=== PATIENT | male | born 1970 | race Hispanic/Latino ===

== ENCOUNTER 2018-11-14 03:36 | Inpatient (IN) | payer BC ==
[~2018-11-14] VITALS: Ht 180.3 cm; Wt 101.5 kg
[~2018-11-14 03:36] MED LIST: AMLO5TAB5 PO; SIMV40TA59 PO
[2018-11-14] MEDS ORDERED: IPRATROPIUM/ALBUTEROL SULFATE 3 ML SOLUTION IH ONE ×3 (04:03→11:04)
[2018-11-14] MEDS ORDERED: ZOSYN 3.375GM+NS 50ML 50 ML IV ONE (04:06)
[2018-11-14 04:19] LABS: ABG BASE EXCESS -11.4 mmol/L (-2.0-3.0); ABG HCO3 12.2 mmol/L (21.0-28.0); ABG OXYGEN SATURATION 94.2 % (95.0-99.0); ABG PCO2 23 mmHg (35-48)
[2018-11-14] MEDS ORDERED: VANCOMYCIN 1GM+NS 250ML 250 ML IV ONE (04:21)
[2018-11-14] MEDS ORDERED: SODIUM CHLORIDE 0.9% 500ML 500 ML IV ONE (04:21)
[2018-11-14 04:28] LABS: BASOPHILS % (AUTO) 1.2 % (0.0-5.0); EOSINOPHILS % (AUTO) 0.2 % (0.0-8.0); HEMATOCRIT 40.9 % (42-54); INR 0.97 (0.85-1.15); LYMPHOCYTES % (AUTO) 14.7 % (21.0-51.0); MEAN CORPUSCULAR HEMOGLOBIN 29.8 pg (27.0-33.0); MEAN CORPUSCULAR HGB CONC 33.2 g/dL (32.0-36.0); MEAN CORPUSCULAR VOLUME 89.8 fL (79-99); MONOCYTES % (AUTO) 4.1 % (3.0-13.0); NEUTROPHILS % (AUTO) 79.8 % (40.0-77.0); PARTIAL THROMBOPLASTIN TIME 34.4 SEC (26.3-35.5); PLATELET COUNT (AUTO) 223 K/uL (130-400); PROTHROMBIN TIME 10.2 SEC (9.6-11.6); RED BLOOD CELL COUNT(AUTO) 4.56 MIL/uL (4.50-6.20); RED CELL DISTRIBUTION WIDTH 14.6 % (11.0-15.5); WHITE BLOOD COUNT (AUTO) 10.2 K/uL (4.8-10.8)
[2018-11-14 04:45] LABS: ALANINE AMINOTRANSFERASE 42 U/L (12-78); ALBUMIN 1.9 g/dL (3.5-5.0); ASPARTATE AMINOTRANSFERASE 69 U/L (10-37); BILIRUBIN,TOTAL 0.2 mg/dL (0.2-1.0); CARBON DIOXIDE 15 mmol/L (21-32); CHLORIDE 104 mmol/L (101-111); CREATINE KINASE, TOTAL 342 U/L (21-232); GLOMERULAR FILTR. RATE CALC 5 mL/min (>60); GLUCOSE,RANDOM 98 mg/dL (70-105); MYOGLOBIN 435 ng/mL (10-92); POTASSIUM 3.6 mmol/L (3.5-5.1); SODIUM SERUM 139 mmol/L (136-145); TOTAL PROTEIN, SERUM 7.3 g/dL (6.0-8.3); TROPONIN I < 0.04 ng/mL (0.00-0.06); UREA NITROGEN, BLOOD 74 mg/dL (7-18)
[2018-11-14 04:48] LABS: B-TYPE NATRIURETIC PEPTIDE 640 pg/mL (0-100)
[2018-11-14] MEDS ORDERED: VANCOMYCIN PROTOCOL PER PHARMACY IV SCH (05:45)
[2018-11-14] MEDS ORDERED: SODIUM CHLORIDE 0.9% 1000ML 1,000 ML IV SCH (05:57)
[2018-11-14] MEDS ORDERED: GLUCAGON 1MG KIT 1 MG ML IM PRN (06:00)
[2018-11-14] MEDS ORDERED: DEXTROSE 50%-WATER 50 ML DISP.SYRIN IV PRN (06:00)
[2018-11-14] MEDS ORDERED: ACETAMINOPHEN 325 MG TAB PO PRN ×3 (06:00→10:30)
[2018-11-14] MEDS ORDERED: ONDANSETRON HCL 4 MG/2 ML VIAL IV PRN ×2 (06:00→10:30)
[2018-11-14 06:23] LABS: HEMOGLOBIN A1C 7.7 % (4.0-6.0)
[2018-11-14] MEDS: INSULIN HUMULIN R 100 UNIT/ML 3ML SQ SCH ×4 (07:30→21:00)
[2018-11-14 07:49] LABS: CRP QUANTITATIVE 97.6 mg/L (0.00-9.0)
[2018-11-14] MEDS ORDERED: SODIUM CHLORIDE 0.9% 1000ML 1,000 ML IV ONE (08:19)
[2018-11-14] MEDS ORDERED: ENOXAPARIN SODIUM 30 MG/0.3 ML SQ ONE (08:20)
[2018-11-14] MEDS ORDERED: FAMOTIDINE/PF 20 MG/2 ML VIAL IV ONE (08:20)
[2018-11-14] MEDS: IPRATROPIUM/ALBUTEROL SULFATE 3 ML SOLUTION IH SCH ×5 (08:33→21:39)
[2018-11-14] MEDS ORDERED: ENOXAPARIN SODIUM 30 MG/0.3 ML SQ SCH (09:00)
[2018-11-14] MEDS: FAMOTIDINE/PF 20 MG/2 ML VIAL IV SCH (09:43)
[2018-11-14] MEDS: FUROSEMIDE 10 MG/ML 4ML VIAL IV SCH ×2 (09:45→21:18)
[2018-11-14] MEDS ORDERED: FUROSEMIDE 10 MG/ML 4ML VIAL ONE (09:59)
[2018-11-14 10:08] LABS: TROPONIN I 0.06 ng/mL (0.00-0.06)
[2018-11-14] MEDS ORDERED: LACTULOSE 20 GM/30 ML UDCUP PO PRN (10:30)
[2018-11-14] MEDS ORDERED: RENAL DOSE IV SCH (10:30)
[2018-11-14] MEDS ORDERED: VANCOMYCIN PROTOCOL PER PHARMACY IV PRN (10:30)
[2018-11-14] MEDS ORDERED: GUAIFENESIN-DM 200/20 MG 10 ML PO PRN (10:30)
[2018-11-14] MEDS ORDERED: SODIUM CHLORIDE 3% FOR INHALATION 4 ML/AMP VIAL.NEB IH ONE ×3 (11:04→22:10)
[2018-11-14] MEDS ORDERED: ACETAMINOPHEN 325 MG TAB ONE (12:18)
[2018-11-14] MEDS ORDERED: ZOSYN 3.375GM+NS 50ML 50 ML IV SCH (13:00)
[2018-11-14 14:40] VITALS: BP 159/90
[2018-11-14] MEDS: VANCOMYCIN 1.5 GM in SODIUM CHLORIDE 0.9% 250 ML IV ONE ×2 (15:13→16:39)
[2018-11-14] MEDS ORDERED: PHARMACY COMMUNICATION MISC SCH (15:15)
[2018-11-14 16:00] VITALS: BP 184/97
[2018-11-14 16:36] LABS: TROPONIN I 0.1 ng/mL (0.00-0.06)
[2018-11-14 19:00] VITALS: BP 196/96
--- NOTE | 2018-11-14 20:45 | NUR ---
HOSPITALIST PAGED REGARDING PATIENT'S ELEVATED BLOOD PRESSURE BOB VENTURA RETURNED CALL, APPRAISED OF PATIENT'S BLOOD PRESSURE, HOME MEDS RESUMED AND GIVEN TO PATIENT.
[2018-11-14] MEDS ORDERED: OSELTAMIVIR PHOSPHATE 75 MG CAP PO SCH (21:00)
[2018-11-14] MEDS ORDERED: AMLODIPINE BESYLATE 5 MG TAB PO ONE (21:15)
[2018-11-14] MEDS: SIMVASTATIN 20 MG TABLET PO SCH (21:18)
[2018-11-14] MEDS: ZOSYN 3.375GM+NS 50ML 50 ML IV SCH (21:19)
[2018-11-14] MEDS: AMLODIPINE BESYLATE 5 MG TAB PO SCH (21:51)
--- NOTE | 2018-11-14 22:50 | NUR ---
BOB VENTURA HERE, ADVISED OF PATIENT'S ELEVATED BLOOD PRESSURE, ORDER RECEIVED AND PLACED IN COMPUTER. PATIENT MEDICATED FOR ELEVATED BLOOD PRESSURE PER ORDERS.
[2018-11-14 23:00] VITALS: BP 196/89
[2018-11-14] MEDS: HYDRALAZINE HCL 20 MG/ML VIAL IV PRN (23:13)
[2018-11-15] VITALS (8 sets, daily range): BP systolic 143–194; BP diastolic 74–94
[2018-11-15] MEDS: IPRATROPIUM/ALBUTEROL SULFATE 3 ML SOLUTION IH SCH ×6 (01:52→22:00)
[2018-11-15 04:10] LABS: HEMATOCRIT 36.3 % (42-54); MEAN CORPUSCULAR HEMOGLOBIN 30.2 pg (27.0-33.0); MEAN CORPUSCULAR HGB CONC 33.8 g/dL (32.0-36.0); MEAN CORPUSCULAR VOLUME 89.3 fL (79-99); NUCLEATED RED BLOOD CELLS 0.2 % (0.0-0.19); PLATELET COUNT (AUTO) 184 K/uL (130-400); RED BLOOD CELL COUNT(AUTO) 4.06 MIL/uL (4.50-6.20); RED CELL DISTRIBUTION WIDTH 14.7 % (11.0-15.5); WHITE BLOOD COUNT (AUTO) 7.2 K/uL (4.8-10.8)
[2018-11-15 04:18] LABS: PARTIAL THROMBOPLASTIN TIME 39.2 SEC (26.3-35.5); PROTHROMBIN TIME 10.5 SEC (9.6-11.6)
[2018-11-15 04:34] LABS: BAND NEUTROPHILS % (MANUAL) 16 % (0-2); BASOPHILS % (MANUAL) 1 % (0-2); LYMPHOCYTES % (MANUAL) 7 % (22-44); MAN.DIFF COMMENT-IMPRESSION MANUAL DIFFERENTIAL; MONOCYTES % (MANUAL) 1 % (2-9); REACTIVE LYMPHOCYTES 1 % (0-0); SEGMENTED NEUTROPHILS % 74 % (40-70)
[2018-11-15 04:35] LABS: PLATELET MORPHOLOGY COMMENT ADEQUATE
[2018-11-15 04:41] LABS: ALBUMIN 1.5 g/dL (3.5-5.0); BILIRUBIN,TOTAL 0.2 mg/dL (0.2-1.0); POTASSIUM 3.3 mmol/L (3.5-5.1); TOTAL PROTEIN, SERUM 6.1 g/dL (6.0-8.3)
[2018-11-15 04:56] LABS: CREATININE 13.4 mg/dL (0.5-1.5)
[2018-11-15] MEDS: INSULIN HUMULIN R 100 UNIT/ML 3ML SQ SCH ×4 (05:56→21:00)
--- NOTE | 2018-11-15 07:41 | NUR ---
PAGED DR. MCMILLAN PATIENT ALREADY AGREED TO HAVING HEMODIALYSIS. AWAITING MD'S CALLBACK.
--- NOTE | 2018-11-15 07:59 | NUR ---
PT CARE/PPD Spoke to IC nurse by phone regarding order to have PPD placed. Will be addressed this AM.
[2018-11-15] MEDS: FAMOTIDINE/PF 20 MG/2 ML VIAL IV SCH (08:34)
[2018-11-15] MEDS: ZOSYN 3.375GM+NS 50ML 50 ML IV SCH ×2 (08:48→21:53)
[2018-11-15] MEDS ORDERED: ENOXAPARIN SODIUM 30 MG/0.3 ML SQ SCH (09:00)
[2018-11-15] MEDS ORDERED: OSELTAMIVIR PO SCH ×2 (09:00)
[2018-11-15] MEDS ORDERED: AMLODIPINE BESYLATE 5 MG TAB PO SCH (09:00)
[2018-11-15] MEDS ORDERED: FAMOTIDINE/PF 20 MG/2 ML VIAL IV SCH (09:00)
[2018-11-15] MEDS: AMLODIPINE BESYLATE 5 MG TAB PO SCH (09:00)
[2018-11-15] MEDS: METOPROLOL TARTRATE 50 MG TAB PO SCH ×2 (09:00→21:54)
--- NOTE | 2018-11-15 09:20 | NUR ---
DR. MCMILLAN IS MAKING HIS ROUNDS. PATIENT IS PENDING PERMACATH PLACEMENT THIS AFTERNOON. HEMODIALYSIS TO BE STARTED TODAY.
[2018-11-15] MEDS: FUROSEMIDE 10 MG/ML 4ML VIAL IV SCH ×2 (11:25→21:45)
--- NOTE | 2018-11-15 16:15 | NUR ---
DC PLAN VISITED WITH PATIENT. PATIENT LIVES WITH SPOUSE. INDEPENDENT ABLE TO PERFORM ADL'S. PATIENT HAS NO SERVICES OR DME'S. FEELS SAFE TO RETURN HOME. Addendum: 11/15/18 at 1619 by CAMILA BURKS RN CM Amended: Links added.
--- NOTE | 2018-11-15 16:18 | NUR ---
DC PLAN VISITED WITH PATIENT. PATIENT LIVES ALONE. INDEPENDENT ABLE TO PERFORM ADL'S. PATIENT HAS NO SERVICES OR DME'S. FEELS SAFE TO RETURN HOME. PATIENT LIKELY TO BE A NEW START DIALYSIS. WILL NEED TO BE IN [place]. Addendum: 11/15/18 at 1619 by CAMILA BURKS RN CM Amended: Links added.
[2018-11-15] MEDS ORDERED: MIDAZOLAM HCL 1 MG/ML 2ML VIAL ONE (16:30)
[2018-11-15] MEDS ORDERED: LIDOCAINE HCL 1% MDV 50ML VIAL ONE (16:30)
[2018-11-15] MEDS ORDERED: FENTANYL CITRATE PF 50 MCG/1 ML 2ML VIAL ONE (16:30)
[2018-11-15] MEDS ORDERED: SODIUM BICARB 50MEQ 50ML VIAL ONE (16:31)
[2018-11-15] MEDS ORDERED: HEPARIN SODIUM 5000UNIT/ML 1ML VIAL ONE (17:11)
--- NOTE | 2018-11-15 17:15 | NUR ---
Jose Alberto catheter placement Time out performed at 1700. Dr Lauren in the room and procedure started at 1705. Patient has been prepared and draped in the usual fashion. 15 cm Schon catheter placed to WIJ. Catheter covered with tegaderm. Patient tolerated procedure well. No oozing, bruising, or hematoma noted. Report given to Brittaney MERCER.
[2018-11-15] MEDS: SIMVASTATIN 20 MG TABLET PO SCH (21:54)
--- NOTE | 2018-11-15 22:00 | NUR ---
AFIB RVR 2144- NOTIFIED BY KEEL PRESS OPERATOR THAT PT CONVERTED TO AFIB RVR 140'S SUSTAINED. PT IS ASYMPTOMATIC WITH SUSTAINED SYSTOLIC BP IN THE 140'S. DIALYSIS NURSE NOTIFIED, WHO IN TURN NOTIFIED Sabrina MCMILLAN FAMILY SERVICE CASEWORKER. INSTRUCTED BY TO CONTINUE WITH HD AND CONSULT LANGUAGE ASSISTANT. 2199- PT CONTINUES ASYMPTOMATIC WITH BP-143/89; AFIB-143. STAT EKG OBTAINED INDICATING AFIB RVR @ 144BPM. FABI MATHUR NOTIFIED. INSTRUCTED TO CONSULT LANGUAGE ASSISTANT. 2214- Cesar MCMILLAN MD NOTIFIED OF NEW CONSULT AND PT CONDITION. CARDIZEM BOLUS AND DRIP INITIATED PER PROTOCOL. PT DENIES PAIN OR DISTRESS. PENDING HD COMPLETION.
[2018-11-15] MEDS ORDERED: DILTIAZEM 125MG+100 ML NS 125 ML IV SCH (22:30)
[2018-11-15] MEDS ORDERED: SODIUM CHLORIDE 0.9% 100 ML IV ONE (22:44)
[2018-11-15] MEDS ORDERED: DILTIAZEM HCL 5 MG/ML 5 ML VIAL IVP ONE (22:45)
[2018-11-15] MEDS ORDERED: DILTIAZEM HCL 5 MG/ML 10 ML VIAL IV ONE (22:49)
[2018-11-16] VITALS (9 sets, daily range): BP systolic 142–168; BP diastolic 72–83
[2018-11-16] MEDS: HYDRALAZINE HCL 20 MG/ML VIAL IV PRN (00:43)
[2018-11-16] MEDS: DILTIAZEM HCL 5 MG/ML 10 ML VIAL IV SCH (00:54)
[2018-11-16] MEDS: IPRATROPIUM/ALBUTEROL SULFATE 3 ML SOLUTION IH SCH (01:47)
[2018-11-16 03:50] LABS: HEMATOCRIT 35.9 % (42-54); MEAN CORPUSCULAR HEMOGLOBIN 30.2 pg (27.0-33.0); MEAN CORPUSCULAR HGB CONC 34.2 g/dL (32.0-36.0); MEAN CORPUSCULAR VOLUME 88.4 fL (79-99); NUCLEATED RED BLOOD CELLS 0.1 % (0.0-0.19); PLATELET COUNT (AUTO) 184 K/uL (130-400); RED BLOOD CELL COUNT(AUTO) 4.06 MIL/uL (4.50-6.20); RED CELL DISTRIBUTION WIDTH 14.5 % (11.0-15.5); WHITE BLOOD COUNT (AUTO) 7.8 K/uL (4.8-10.8)
[2018-11-16 04:12] LABS: PHOSPHORUS 5.9 mg/dL (2.5-4.9); POTASSIUM 3.2 mmol/L (3.5-5.1)
[2018-11-16 04:30] LABS: CREATININE 11.8 mg/dL (0.5-1.5)
[2018-11-16] MEDS ORDERED: VANCOMYCIN 500MG+NS 100ML 100 ML IV SCH (06:00)
[2018-11-16] MEDS: INSULIN HUMULIN R 100 UNIT/ML 3ML SQ SCH ×4 (07:30→20:48)
[2018-11-16] MEDS ORDERED: IPRATROPIUM/ALBUTEROL SULFATE 3 ML SOLUTION IH PRN (09:00)
[2018-11-16] MEDS: METOPROLOL TARTRATE 50 MG TAB PO SCH ×2 (09:00→20:47)
[2018-11-16] MEDS: AMLODIPINE BESYLATE 5 MG TAB PO SCH (09:00)
[2018-11-16] MEDS: FAMOTIDINE/PF 20 MG/2 ML VIAL IV SCH (09:09)
[2018-11-16] MEDS: FUROSEMIDE 10 MG/ML 4ML VIAL IV SCH ×2 (09:09→20:49)
[2018-11-16] MEDS: ZOSYN 3.375GM+NS 50ML 50 ML IV SCH ×2 (09:09→20:47)
[2018-11-16] MEDS: ACETYLCYSTEINE 10% 100MG/ML 4ML VIAL IH SCH ×3 (11:37→23:49)
[2018-11-16] MEDS: IPRATROPIUM 0.5 MG/2.5 ML INH IH SCH ×3 (11:37→23:49)
[2018-11-16] MEDS ORDERED: HEPARIN SODIUM 5000UNIT/ML 1ML VIAL IJ PRN ×2 (18:15)
[2018-11-16] MEDS ORDERED: ACETAMINOPHEN 325 MG TAB PO PRN (18:15)
[2018-11-16] MEDS ORDERED: SODIUM CHLORIDE 0.9% 1000ML 1,000 ML IV PRN (18:15)
[2018-11-16] MEDS ORDERED: 0.9% SODIUM CHLORIDE 1000 ML IV BAG IV PRN (18:15)
[2018-11-16] MEDS ORDERED: NITROGLYCERIN 0.4 MG SL TAB SL PRN (18:15)
[2018-11-16] MEDS ORDERED: VANCOMYCIN 1GM+NS 250ML 250 ML IV SCH (18:30)
--- NOTE | 2018-11-16 19:02 | NUR ---
ASSESSMENT AA&OX3. NO DISTRESS NOTED. COMPLETED HEMODIALYSIS TREATMENT WITHOUT ANY ADVERSE EFFECTS. FULL ASSESSMENT DOCUMENTED. "GIRLFRIEND" AT BEDSIDE. INSTRUCTED ON PLAN OF CARE. INSTRUCTED ON PENDING SPUTUM SAMPLE FOR AFB. CONTAINER AT BEDSIDE. VERBALIZED UNDERSTANDING.
[2018-11-16] MEDS: SIMVASTATIN 20 MG TABLET PO SCH (20:48)
--- NOTE | 2018-11-16 21:00 | NUR ---
SPUTUM SAMPLE OBTAINED AND SENT TO LAB FOR AFB.
[2018-11-17 00:25] VITALS: BP 138/71
[2018-11-17 03:46] VITALS: BP 144/75
[2018-11-17 05:12] LABS: BASOPHILS % (AUTO) 0.4 % (0.0-5.0); EOSINOPHILS % (AUTO) 1.9 % (0.0-8.0); HEMATOCRIT 35.4 % (42-54); LYMPHOCYTES % (AUTO) 35.1 % (21.0-51.0); MEAN CORPUSCULAR HEMOGLOBIN 29.6 pg (27.0-33.0); MEAN CORPUSCULAR HGB CONC 33.5 g/dL (32.0-36.0); MEAN CORPUSCULAR VOLUME 88.2 fL (79-99); MONOCYTES % (AUTO) 8.4 % (3.0-13.0); NEUTROPHILS % (AUTO) 54.2 % (40.0-77.0); NUCLEATED RED BLOOD CELLS 0.1 % (0.0-0.19); PLATELET COUNT (AUTO) 200 K/uL (130-400); RED BLOOD CELL COUNT(AUTO) 4.01 MIL/uL (4.50-6.20); RED CELL DISTRIBUTION WIDTH 14.4 % (11.0-15.5); WHITE BLOOD COUNT (AUTO) 5.9 K/uL (4.8-10.8)
[2018-11-17 05:32] LABS: CREATININE 9.3 mg/dL (0.5-1.5); POTASSIUM 2.9 mmol/L (3.5-5.1)
[2018-11-17] MEDS: INSULIN HUMULIN R 100 UNIT/ML 3ML SQ SCH ×4 (05:53→20:46)
[2018-11-17] MEDS ORDERED: POTASSIUM CHLORIDE 20 MEQ ERTAB PO SCH ×3 (06:00→16:00)
[2018-11-17] MEDS ORDERED: POTASSIUM CHLORIDE 20 MEQ ERTAB PO ONE (06:11)
[2018-11-17] MEDS: IPRATROPIUM 0.5 MG/2.5 ML INH IH SCH ×4 (06:14→23:25)
[2018-11-17] MEDS: ACETYLCYSTEINE 10% 100MG/ML 4ML VIAL IH SCH ×4 (06:14→23:25)
[2018-11-17 07:15] VITALS: BP 137/72
--- NOTE | 2018-11-17 07:30 | NUR ---
AM ASSESSMENT PT LAYING IN BED, HOB ELEVATED 30 DEGREES, WATCHING TV. AIRBORNE ISOLATION. A/O X 3. SOB ON EXERTION. NO DISTRESS NOTED. O2 NC @ 2L. DENIES CHEST PAIN OR DISCOMFORT. DENIES PALPITATIONS. TELE: SR 70-80s. DENIES N/V AND/OR DIARRHEA. LT ARM PRECAUTIONS, POSSIBLE HD ACCESS IN FUTURE. PT TO RECEIVE 3rd HD TX TOMORROW. UP AD JORDAN. INSTRUCTED TO CALL FOR ASSISTANCE. CALL HARRIS W/IN REACH.
[2018-11-17 08:43] LABS: EOSINOPHILS % (AUTO) 2.3 % (0.0-8.0); HEMATOCRIT 35.3 % (42-54); LYMPHOCYTES % (AUTO) 32.7 % (21.0-51.0); MEAN CORPUSCULAR HEMOGLOBIN 29.4 pg (27.0-33.0); MEAN CORPUSCULAR VOLUME 89.1 fL (79-99); MONOCYTES % (AUTO) 9.9 % (3.0-13.0); NEUTROPHILS % (AUTO) 54.1 % (40.0-77.0); NUCLEATED RED BLOOD CELLS 0.1 % (0.0-0.19); PLATELET COUNT (AUTO) 206 K/uL (130-400); RED BLOOD CELL COUNT(AUTO) 3.97 MIL/uL (4.50-6.20); RED CELL DISTRIBUTION WIDTH 14.4 % (11.0-15.5); WHITE BLOOD COUNT (AUTO) 5.9 K/uL (4.8-10.8)
[2018-11-17] MEDS: FAMOTIDINE/PF 20 MG/2 ML VIAL IV SCH (10:01)
[2018-11-17] MEDS: AMLODIPINE BESYLATE 5 MG TAB PO SCH (10:01)
[2018-11-17] MEDS: ZOSYN 3.375GM+NS 50ML 50 ML IV SCH ×2 (10:01→22:05)
[2018-11-17] MEDS: METOPROLOL TARTRATE 50 MG TAB PO SCH ×2 (10:01→22:11)
[2018-11-17] MEDS: OSELTAMIVIR PHOSPHATE PO SCH ×2 (10:05)
[2018-11-17] MEDS: COMPOUNDING VEHICLE NO 8 PO SCH ×2 (10:05)
[2018-11-17] MEDS: FUROSEMIDE 10 MG/ML 4ML VIAL IV SCH ×2 (10:07→17:42)
[2018-11-17 10:52] LABS: POTASSIUM 3.2 mmol/L (3.5-5.1)
[2018-11-17 10:56] LABS: CREATININE 9.8 mg/dL (0.5-1.5)
[2018-11-17] MEDS ORDERED: METO50TA18 PO (11:24)
[2018-11-17 12:00] VITALS: BP 137/72
--- NOTE | 2018-11-17 14:08 | NUR ---
TRANSFER REPORT GIVEN TO PRINCESS MERCER. PT TO BE TRANSFERRED TO [facility] 301.
--- NOTE | 2018-11-17 14:35 | NUR ---
TRANSFER PT TAKEN TO [facility] VIA WC BY Raquel LE PCP, ACCOMPANIED BY FAMILY.
[2018-11-17 16:00] VITALS: BP 140/83
[2018-11-17 19:00] VITALS: BP 131/82
[2018-11-17] MEDS ORDERED: SODIUM CHLORIDE 0.9% 250 ML IV ONE (22:02)
[2018-11-17] MEDS: SIMVASTATIN 20 MG TABLET PO SCH (22:11)
[2018-11-17] MEDS: POTASSIUM CHLORIDE 10% ELIXIR 20 MEQ/15 ML UDCUP PO SCH (22:12)
[2018-11-18] VITALS (11 sets, daily range): BP systolic 121–175; BP diastolic 70–93
[2018-11-18] MEDS: FUROSEMIDE 10 MG/ML 4ML VIAL IV SCH (04:49)
[2018-11-18 05:59] LABS: BASOPHILS % (AUTO) 0.5 % (0.0-5.0); EOSINOPHILS % (AUTO) 4.1 % (0.0-8.0); HEMATOCRIT 36.3 % (42-54); LYMPHOCYTES % (AUTO) 23.7 % (21.0-51.0); MEAN CORPUSCULAR HEMOGLOBIN 29.4 pg (27.0-33.0); MEAN CORPUSCULAR HGB CONC 32.8 g/dL (32.0-36.0); MEAN CORPUSCULAR VOLUME 89.6 fL (79-99); MONOCYTES % (AUTO) 10.5 % (3.0-13.0); NEUTROPHILS % (AUTO) 61.2 % (40.0-77.0); NUCLEATED RED BLOOD CELLS 0.2 % (0.0-0.19); PLATELET COUNT (AUTO) 225 K/uL (130-400); RED BLOOD CELL COUNT(AUTO) 4.05 MIL/uL (4.50-6.20); RED CELL DISTRIBUTION WIDTH 14.4 % (11.0-15.5); WHITE BLOOD COUNT (AUTO) 7.7 K/uL (4.8-10.8)
[2018-11-18 06:12] LABS: PHOSPHORUS 4.4 mg/dL (2.5-4.9); POTASSIUM 3.4 mmol/L (3.5-5.1)
[2018-11-18] MEDS: IPRATROPIUM 0.5 MG/2.5 ML INH IH SCH ×5 (06:16→23:43)
[2018-11-18] MEDS: ACETYLCYSTEINE 10% 100MG/ML 4ML VIAL IH SCH ×5 (06:16→23:43)
[2018-11-18 06:22] LABS: CREATININE 10.9 mg/dL (0.5-1.5)
[2018-11-18] MEDS: INSULIN HUMULIN R 100 UNIT/ML 3ML SQ SCH ×4 (07:30→20:15)
[2018-11-18] MEDS: METOPROLOL TARTRATE 50 MG TAB PO SCH ×2 (09:00→20:05)
[2018-11-18] MEDS: COMPOUNDING VEHICLE NO 8 PO SCH ×2 (09:00)
[2018-11-18] MEDS: POTASSIUM CHLORIDE 10% ELIXIR 20 MEQ/15 ML UDCUP PO SCH ×2 (09:00→20:14)
[2018-11-18] MEDS: AMLODIPINE BESYLATE 5 MG TAB PO SCH (09:00)
[2018-11-18] MEDS: OSELTAMIVIR PHOSPHATE PO SCH ×2 (09:00)
[2018-11-18] MEDS: FAMOTIDINE/PF 20 MG/2 ML VIAL IV SCH (10:51)
[2018-11-18] MEDS: ZOSYN 3.375GM+NS 50ML 50 ML IV SCH ×2 (10:51→20:05)
--- NOTE | 2018-11-18 11:00 | NUR ---
[facility]CMILLAN GAVE ORDER TO SET UP OUT PATIENT HD- [facility]. WENT TO TO VERIFY ADDRESS/CONSENT, ETC PT DOWN FOR BRONCHOSCOPY, WILL RETURN TO GET INFO AND FAX
[2018-11-18] MEDS ORDERED: PROPOFOL 1000 MG/100 ML 100 ML IV ONE (11:12)
[2018-11-18] MEDS ORDERED: FENTANYL CITRATE PF 50 MCG/1 ML 2ML VIAL ONE (11:14)
[2018-11-18] MEDS ORDERED: MIDAZOLAM HCL 1 MG/ML 2ML VIAL ONE (11:14)
[2018-11-18 16:02] LABS: CHOLESTEROL 127 mg/dL (<200); HDL CHOLESTEROL 27 mg/dL (29-71); LDL DIRECT 76 mg/dL (0-99); TRIGLYCERIDES 183 mg/dL (30-200)
[2018-11-18 17:56] LABS: APPEARANCE BODY FLUID SLIGHTLY CLOUDY (CLEAR); BODY FLUID WBC 13 /cu. mm.; COLOR,BODY FLUID COLORLESS (LT YELLOW); SPECIMENTYPE,BODY FLUID LAVAGE; TOTAL VOLUME,BODY FLUID 10 mL
[2018-11-18 17:57] LABS: BODY FLUID RBC 8 /cu. mm.
[2018-11-18] MEDS ORDERED: SODIUM CHLORIDE 0.9% 1000ML 1,000 ML IV PRN (18:30)
[2018-11-18] MEDS ORDERED: ACETAMINOPHEN 325 MG TAB PO PRN (18:30)
[2018-11-18] MEDS ORDERED: 0.9% SODIUM CHLORIDE 1000 ML IV BAG IV PRN (18:30)
[2018-11-18] MEDS ORDERED: NITROGLYCERIN 0.4 MG SL TAB SL PRN (18:30)
[2018-11-18] MEDS ORDERED: HEPARIN SODIUM 5000UNIT/ML 1ML VIAL IJ PRN (18:30)
[2018-11-18] MEDS: SIMVASTATIN 20 MG TABLET PO SCH (20:05)
[2018-11-18] MEDS: DILTIAZEM HCL 5 MG/ML 10 ML VIAL IV SCH (22:30)
[2018-11-19] VITALS (7 sets, daily range): BP systolic 140–159; BP diastolic 73–87
[2018-11-19 04:54] LABS: HEMATOCRIT 36.2 % (42-54); MEAN CORPUSCULAR HEMOGLOBIN 29.4 pg (27.0-33.0); MEAN CORPUSCULAR HGB CONC 33.1 g/dL (32.0-36.0); MEAN CORPUSCULAR VOLUME 88.8 fL (79-99); NUCLEATED RED BLOOD CELLS 0.1 % (0.0-0.19); PLATELET COUNT (AUTO) 242 K/uL (130-400); RED BLOOD CELL COUNT(AUTO) 4.08 MIL/uL (4.50-6.20); WHITE BLOOD COUNT (AUTO) 8.6 K/uL (4.8-10.8)
[2018-11-19 05:21] LABS: ALBUMIN 1.5 g/dL (3.5-5.0); BILIRUBIN,TOTAL 0.4 mg/dL (0.2-1.0); POTASSIUM 3.4 mmol/L (3.5-5.1); TOTAL PROTEIN, SERUM 6.4 g/dL (6.0-8.3)
[2018-11-19 05:25] LABS: CREATININE 8.6 mg/dL (0.5-1.5)
[2018-11-19] MEDS: ACETYLCYSTEINE 10% 100MG/ML 4ML VIAL IH SCH ×4 (06:12→23:21)
[2018-11-19] MEDS: IPRATROPIUM 0.5 MG/2.5 ML INH IH SCH ×4 (06:12→23:21)
[2018-11-19 07:29] LABS: HEPATITIS Bs ANTIGEN SCREEN P Negative (Negative)
[2018-11-19] MEDS: INSULIN HUMULIN R 100 UNIT/ML 3ML SQ SCH ×4 (07:29→21:00)
--- NOTE | 2018-11-19 09:00 | NUR ---
DC PLAN UPDATE CALL REC THIS AM FROM HD FACILITY- NEED CALRIFICATION OF ESRD; NEED LAST TX AND UPDATED HEP B COMPLETE PANEL. VASCULAR ACCESS PENDING
--- NOTE | 2018-11-19 09:10 | NUR ---
DEYANIRA IN TO SEE PATIENT NO NEW ORDERS
[2018-11-19] MEDS: AMLODIPINE BESYLATE 5 MG TAB PO SCH (09:32)
[2018-11-19] MEDS: METOPROLOL TARTRATE 50 MG TAB PO SCH ×2 (09:33→21:32)
[2018-11-19] MEDS: ENOXAPARIN SODIUM 40 MG/0.4 ML SYRINGE SQ SCH (09:35)
[2018-11-19] MEDS: POTASSIUM CHLORIDE 10% ELIXIR 20 MEQ/15 ML UDCUP PO SCH ×2 (09:36→21:00)
[2018-11-19] MEDS: FAMOTIDINE/PF 20 MG/2 ML VIAL IV SCH (09:36)
[2018-11-19] MEDS ORDERED: OSELTAMIVIR PHOSPHATE 75 MG CAP ONE (09:48)
[2018-11-19] MEDS: COMPOUNDING VEHICLE NO 8 PO SCH ×2 (09:50)
[2018-11-19] MEDS: OSELTAMIVIR PHOSPHATE PO SCH ×2 (09:50)
[2018-11-19] MEDS: ZOSYN 3.375GM+NS 50ML 50 ML IV SCH ×2 (09:50→21:31)
--- NOTE | 2018-11-19 15:59 | NUR ---
NUTRITION INTERVENTION: NUTRITION NOTIFICATION FOR ALB 1.5. Pt NEW TO HEMODIALYSIS, DIALYSIS DIET EDUCATION PENDING. Pt CURRENTLY ON RENAL DIALYSIS DIET, RECOMMEND DIET MODIFICATION WITH CCD 75GM. LBM 11/18. BMI 32.8 ALB 1.5 RECOMMENDATIONS: CCD 75GM DIET MODIFICATION. PROMOD 30mL TID WITH MEALS FOR ADDED PROTEIN Addendum: 11/19/18 at [address] Amended: Links added.
[2018-11-19] MEDS: VANCOMYCIN 1GM+NS 250ML 250 ML IV SCH (17:38)
--- NOTE | 2018-11-19 18:00 | NUR ---
PHONE CONVERSATION FROM DR GLASS OBTAIN CONSENT FOR DIALYSIS VASCULAR ACCESS LEFT UPPER EXTREMITY AND TO HAVE PATIENT IN HOLDING AREA BY 0730 11/20/18. INFORMED PATIENT AND .
[2018-11-19] MEDS: METOPROLOL TARTRATE 25 MG TAB PO SCH (21:31)
[2018-11-19] MEDS: SIMVASTATIN 20 MG TABLET PO SCH (21:32)
[2018-11-20] VITALS (23 sets, daily range): BP systolic 117–151; BP diastolic 70–87
[2018-11-20 04:35] LABS: HEMATOCRIT 36.9 % (42-54); MEAN CORPUSCULAR HEMOGLOBIN 29.4 pg (27.0-33.0); MEAN CORPUSCULAR HGB CONC 32.9 g/dL (32.0-36.0); MEAN CORPUSCULAR VOLUME 89.6 fL (79-99); NUCLEATED RED BLOOD CELLS 0.2 % (0.0-0.19); PLATELET COUNT (AUTO) 240 K/uL (130-400); RED BLOOD CELL COUNT(AUTO) 4.12 MIL/uL (4.50-6.20); RED CELL DISTRIBUTION WIDTH 14.1 % (11.0-15.5); WHITE BLOOD COUNT (AUTO) 8.5 K/uL (4.8-10.8)
[2018-11-20 05:22] LABS: ALBUMIN 1.4 g/dL (3.5-5.0); PHOSPHORUS 4.2 mg/dL (2.5-4.9); POTASSIUM 3.4 mmol/L (3.5-5.1)
[2018-11-20 05:27] LABS: CREATININE 10.2 mg/dL (0.5-1.5)
[2018-11-20] MEDS: IPRATROPIUM 0.5 MG/2.5 ML INH IH SCH ×4 (06:03→23:25)
[2018-11-20] MEDS: INSULIN HUMULIN R 100 UNIT/ML 3ML SQ SCH ×4 (06:40→21:00)
[2018-11-20] MEDS: ACETYLCYSTEINE 10% 100MG/ML 4ML VIAL IH SCH ×4 (06:45→23:26)
[2018-11-20] MEDS ORDERED: LIDOCAINE HCL 2% 20ML ONE (07:02)
[2018-11-20] MEDS ORDERED: BACITRACIN 50,000 UNIT VIAL ONE (07:32)
[2018-11-20] MEDS ORDERED: PAPAVERINE HCL 30 MG/ML 2ML VIAL ONE (07:32)
[2018-11-20] MEDS ORDERED: MIDAZOLAM HCL 1 MG/ML 2ML VIAL ONE (07:41)
[2018-11-20] MEDS ORDERED: PROPOFOL 1000 MG/100 ML 100 ML IV ONE (07:47)
[2018-11-20] MEDS ORDERED: FENTANYL CITRATE PF 50 MCG/1 ML 2ML VIAL ONE (07:52)
[2018-11-20] MEDS ORDERED: SUCCINYLCHOLINE 200MG/10ML SYR ONE (07:58)
[2018-11-20] MEDS: METOPROLOL TARTRATE 50 MG TAB PO SCH (09:00)
[2018-11-20] MEDS: LISINOPRIL 20 MG TABLET PO SCH (09:00)
[2018-11-20] MEDS: COMPOUNDING VEHICLE NO 8 PO SCH ×2 (09:00)
[2018-11-20] MEDS: POTASSIUM CHLORIDE 10% ELIXIR 20 MEQ/15 ML UDCUP PO SCH ×2 (09:00→21:26)
[2018-11-20] MEDS: METOPROLOL TARTRATE 25 MG TAB PO SCH ×2 (09:00→21:27)
[2018-11-20] MEDS: FAMOTIDINE/PF 20 MG/2 ML VIAL IV SCH (09:00)
[2018-11-20] MEDS: OSELTAMIVIR PHOSPHATE PO SCH ×2 (09:00)
[2018-11-20] MEDS: ZOSYN 3.375GM+NS 50ML 50 ML IV SCH ×2 (09:00→21:25)
--- NOTE | 2018-11-20 09:30 | NUR ---
PROCEDURE REPORT RECEIVED FROM SYLVIE FAROOQ (PACU). PATIENT S/P LEFT RADIAL FISTULA BY DR. GLASS. BRUIT /THRILL NOTED. DRESSING TO SITE DRY AND INTACT. LEFT HAND WARM TO TOUCH. PATIENT DENIES ANY PAIN AT THIS TIME.
--- NOTE | 2018-11-20 12:00 | NUR ---
[facility] REFERRAL IN PROCESS CALL RECD FORM [facility]- CAROL CLAUDIA PT - [facility] OUT OF NETWORK;NO OUT OF NETWORK BENFITS; ASKING IF PT NEEDS A REQUEST FOR OUT OF NETWORK CONSTRACT, WILL GO AHEAD AND DO THAT; WILL DISCUSS ALTERNATIVE PLAN WITH PT.([facility]?)
[2018-11-20] MEDS: SIMVASTATIN 20 MG TABLET PO SCH (21:26)
[2018-11-21] VITALS (12 sets, daily range): BP systolic 128–167; BP diastolic 72–88
[2018-11-21 05:13] LABS: HEMATOCRIT 37.1 % (42-54); MEAN CORPUSCULAR HEMOGLOBIN 29.3 pg (27.0-33.0); MEAN CORPUSCULAR HGB CONC 32.6 g/dL (32.0-36.0); MEAN CORPUSCULAR VOLUME 89.8 fL (79-99); NUCLEATED RED BLOOD CELLS 0.2 % (0.0-0.19); PLATELET COUNT (AUTO) 293 K/uL (130-400); RED BLOOD CELL COUNT(AUTO) 4.14 MIL/uL (4.50-6.20); RED CELL DISTRIBUTION WIDTH 13.9 % (11.0-15.5); WHITE BLOOD COUNT (AUTO) 9.7 K/uL (4.8-10.8)
[2018-11-21 05:36] LABS: POTASSIUM 3.7 mmol/L (3.5-5.1)
[2018-11-21 05:37] LABS: CREATININE 8.5 mg/dL (0.5-1.5)
[2018-11-21] MEDS: INSULIN HUMULIN R 100 UNIT/ML 3ML SQ SCH ×4 (06:43→21:00)
[2018-11-21] MEDS: IPRATROPIUM 0.5 MG/2.5 ML INH IH SCH ×2 (07:04→11:42)
[2018-11-21] MEDS: ACETYLCYSTEINE 10% 100MG/ML 4ML VIAL IH SCH ×2 (07:04→11:42)
[2018-11-21] MEDS: METOPROLOL TARTRATE 25 MG TAB PO SCH ×2 (09:00→23:38)
[2018-11-21] MEDS: POTASSIUM CHLORIDE 10% ELIXIR 20 MEQ/15 ML UDCUP PO SCH ×2 (09:00→23:38)
[2018-11-21] MEDS: ENOXAPARIN SODIUM 40 MG/0.4 ML SYRINGE SQ SCH (09:00)
[2018-11-21] MEDS: LISINOPRIL 20 MG TABLET PO SCH (09:00)
[2018-11-21 09:53] LABS: INR 1.05 (0.85-1.15); PARTIAL THROMBOPLASTIN TIME 28.8 SEC (26.3-35.5)
[2018-11-21] MEDS: FAMOTIDINE/PF 20 MG/2 ML VIAL IV SCH (11:20)
[2018-11-21] MEDS: ZOSYN 3.375GM+NS 50ML 50 ML IV SCH ×2 (11:20→23:37)
[2018-11-21] MEDS ORDERED: LIDOCAINE HCL 1% MDV 50ML VIAL ONE (14:36)
--- NOTE | 2018-11-21 15:02 | NUR ---
PROCEDURE REPORT RECEIVED FROM SYLVIE AL (REPORT WRITER). PATIENT S/P PERMACATH PLACEMENT TO [facility]. DRESSING DRY AND INTACT. PATIENT STABLE AT THIS TIME.
--- NOTE | 2018-11-21 16:14 | NUR ---
NEEDS PRIMARY MD TO CONTACT [facility] NO ANSWER YET FROM [facility]. PT STATES A [facility]ERAT [facility]ARDSHIP TO DIALYZE IN [place] SISTER MADE CALL TO [facility]; FOUND OUT THAT A REQUEST TO AUTHORIZE SERVICES FOR OUT OF NETWORK DIALYSIS CAN BE INITIATED BY PRIMARY PHYSICIAN. CALL MADE TO DR. CARLISLE, [facility] STAFF UPDATE- WILL SEND INFO AND THEY WILL CALL IT IN.
--- NOTE | 2018-11-21 16:45 | NUR ---
PRIMO RESPONSE RE: HD CHAIR AVAILABILITY NO ROOM AT [facility] POSSIBLE PLACEMENT AT [facility] IN [place]. PRESENTED TO PT, STILL HOPING FOR [facility]-
[2018-11-21] MEDS: VANCOMYCIN 1GM+NS 250ML 250 ML IV SCH (17:00)
[2018-11-21] MEDS: SIMVASTATIN 20 MG TABLET PO SCH (23:27)
[2018-11-22] VITALS: BP 123/86
[2018-11-22 04:00] VITALS: BP 124/79
[2018-11-22] MEDS: IPRATROPIUM 0.5 MG/2.5 ML INH IH SCH ×5 (06:00→23:51)
[2018-11-22] MEDS: ACETYLCYSTEINE 10% 100MG/ML 4ML VIAL IH SCH ×4 (06:00→18:00)
[2018-11-22] MEDS: INSULIN HUMULIN R 100 UNIT/ML 3ML SQ SCH ×4 (07:30→21:00)
[2018-11-22 08:00] VITALS: BP 142/83
[2018-11-22] MEDS: POTASSIUM CHLORIDE 10% ELIXIR 20 MEQ/15 ML UDCUP PO SCH ×2 (09:00→21:23)
[2018-11-22] MEDS: LISINOPRIL 20 MG TABLET PO SCH (09:00)
[2018-11-22] MEDS: METOPROLOL TARTRATE 25 MG TAB PO SCH ×2 (09:00→21:22)
[2018-11-22] MEDS: FAMOTIDINE/PF 20 MG/2 ML VIAL IV SCH (09:40)
[2018-11-22] MEDS: ZOSYN 3.375GM+NS 50ML 50 ML IV SCH ×2 (09:40→21:26)
[2018-11-22 12:00] VITALS: BP 169/89
--- NOTE | 2018-11-22 12:46 | NUR ---
Nutrition follow-up: Pt. S/P AV Fistula SADIA(11/20/18). Pt. on 75gm CCD Renal Dialysis diet with 30ml ProMod TID. Pt. reports tolerating diet well. Labs reviewed(Alb 1.4). LBM: 11/21/18. SR-21, Left radial fistula incision. Recommendations: 1) Continue current diet and ProMod supplement. 2) Continue to monitor pt's nutritional status. 3) Consult RD as nutrition concerns arise. Addendum: 11/22/18 at [address] Amended: Links added.
[2018-11-22 16:00] VITALS: BP 120/85
--- NOTE | 2018-11-22 16:16 | NUR ---
CM UPDATE RE CHAIR /[facility] TWO CALLS RECD FROM [facility] INTAKE- CALL #1 PT ACCEPTED AT [facility] MWF; CALL #2 PT ACCEPTED AT [facility] TTS LETTER FAXED. TTS 3RD SHIFT [address]. DEYANIRA CERVANTES, STATES CHECK W [facility]; DO NOT TAKE THE ACCEPTANCE LETTER VALID ALSO STATES FAMILY IS ASKING INSURANCE TO AUTH [employer]O HIGGINS AND THAT IS SITLL IN [place]. CALL TO [facility] - THEY STATES NO PT IS NOT ACCEPTED AT [facility], INSURANCE AUTH IS STILL PENDING CM TO FOLLOW UP SUNDAY TO CLARIFY
[2018-11-22 19:53] VITALS: BP 135/77
[2018-11-22] MEDS: SIMVASTATIN 20 MG TABLET PO SCH (21:22)
[2018-11-23] VITALS (8 sets, daily range): BP systolic 119–142; BP diastolic 59–78
[2018-11-23 05:56] LABS: HEMATOCRIT 38.2 % (42-54); MEAN CORPUSCULAR VOLUME 90.4 fL (79-99); NUCLEATED RED BLOOD CELLS 0.1 % (0.0-0.19); PLATELET COUNT (AUTO) 368 K/uL (130-400); RED BLOOD CELL COUNT(AUTO) 4.23 MIL/uL (4.50-6.20); RED CELL DISTRIBUTION WIDTH 14.1 % (11.0-15.5); WHITE BLOOD COUNT (AUTO) 11.4 K/uL (4.8-10.8)
[2018-11-23] MEDS: IPRATROPIUM 0.5 MG/2.5 ML INH IH SCH ×5 (05:59→23:12)
[2018-11-23] MEDS: ACETYLCYSTEINE 10% 100MG/ML 4ML VIAL IH SCH ×5 (05:59→23:12)
[2018-11-23 06:06] LABS: POTASSIUM 3.8 mmol/L (3.5-5.1)
[2018-11-23 06:10] LABS: CREATININE 9.4 mg/dL (0.5-1.5)
[2018-11-23] MEDS: INSULIN HUMULIN R 100 UNIT/ML 3ML SQ SCH ×4 (06:53→21:00)
[2018-11-23] MEDS: POTASSIUM CHLORIDE 10% ELIXIR 20 MEQ/15 ML UDCUP PO SCH ×2 (09:00→21:00)
[2018-11-23] MEDS: LISINOPRIL 20 MG TABLET PO SCH (09:47)
[2018-11-23] MEDS: METOPROLOL TARTRATE 25 MG TAB PO SCH ×2 (09:47→21:58)
[2018-11-23] MEDS: ZOSYN 3.375GM+NS 50ML 50 ML IV SCH ×2 (09:47→21:58)
[2018-11-23] MEDS: FAMOTIDINE/PF 20 MG/2 ML VIAL IV SCH (09:48)
[2018-11-23] MEDS: ENOXAPARIN SODIUM 40 MG/0.4 ML SYRINGE SQ SCH (09:52)
--- NOTE | 2018-11-23 17:30 | NUR ---
CALLED PHARMACY AND REPORTED A LOW VANCO LEVEL 12.8. ACCORDING TO HOMERO, HE WILL CHANGE THE DOSE.
[2018-11-23] MEDS: VANCOMYCIN 1GM+NS 250ML 250 ML IV SCH (18:52)
[2018-11-23] MEDS: SIMVASTATIN 20 MG TABLET PO SCH (21:58)
[2018-11-24 04:17] VITALS: BP 139/78
[2018-11-24] MEDS: IPRATROPIUM 0.5 MG/2.5 ML INH IH SCH ×4 (06:14→23:03)
[2018-11-24] MEDS: ACETYLCYSTEINE 10% 100MG/ML 4ML VIAL IH SCH ×4 (06:14→23:03)
[2018-11-24] MEDS: INSULIN HUMULIN R 100 UNIT/ML 3ML SQ SCH ×4 (07:30→20:56)
[2018-11-24 08:00] VITALS: BP 127/86
[2018-11-24] MEDS: POTASSIUM CHLORIDE 10% ELIXIR 20 MEQ/15 ML UDCUP PO SCH ×2 (09:00→20:56)
[2018-11-24] MEDS: LISINOPRIL 20 MG TABLET PO SCH (09:17)
[2018-11-24] MEDS: METOPROLOL TARTRATE 25 MG TAB PO SCH ×2 (09:17→20:50)
[2018-11-24] MEDS: FAMOTIDINE/PF 20 MG/2 ML VIAL IV SCH (09:18)
[2018-11-24] MEDS: ZOSYN 3.375GM+NS 50ML 50 ML IV SCH ×2 (09:18→20:50)
[2018-11-24 12:00] VITALS: BP 139/76
--- NOTE | 2018-11-24 13:37 | NUR ---
MD ROUNDS DR. MCMILLAN VISITED WITH PATIENT. POC DISCUSSED. NEW ORDERS RECEIVED AND CARRIED OUT. PER DR. MCMILLAN, HOLD DIALYSIS TOMORROW UNTIL HE COMES AND SEES THE PATIENT. POSSIBLE CHANGE IN DIALYSIS SCHEDULE.
[2018-11-24 16:00] VITALS: BP 141/77
[2018-11-24 19:45] VITALS: BP 137/66
[2018-11-24] MEDS: SIMVASTATIN 20 MG TABLET PO SCH (20:50)
[2018-11-24 23:37] VITALS: BP 116/61
[2018-11-25 03:26] VITALS: BP 127/73
[2018-11-25] MEDS: IPRATROPIUM 0.5 MG/2.5 ML INH IH SCH (06:00)
[2018-11-25] MEDS: ACETYLCYSTEINE 10% 100MG/ML 4ML VIAL IH SCH (06:00)
[2018-11-25 07:00] VITALS: BP 134/75
[2018-11-25] MEDS: INSULIN HUMULIN R 100 UNIT/ML 3ML SQ SCH (07:30)
--- NOTE | 2018-11-25 08:00 | NUR ---
AM SHIFT ASSESSMENT.
[2018-11-25] MEDS: ZOSYN 3.375GM+NS 50ML 50 ML IV SCH (08:42)
[2018-11-25] MEDS: METOPROLOL TARTRATE 25 MG TAB PO SCH (08:43)
[2018-11-25] MEDS: LISINOPRIL 20 MG TABLET PO SCH (08:43)
[2018-11-25] MEDS: POTASSIUM CHLORIDE 10% ELIXIR 20 MEQ/15 ML UDCUP PO SCH (08:44)
--- NOTE | 2018-11-25 08:45 | NUR ---
STILL NOT CLEARED TO START HD/ [facility]- SPOKE TO SAMANTHA AT [facility] MARIELA [phone]. INFORMED PT. PTS PREFERENCE [facility] TO GOT TO [facility] IN [place]
[2018-11-25] MEDS: FAMOTIDINE/PF 20 MG/2 ML VIAL IV SCH (09:00)
--- NOTE | 2018-11-25 10:04 | NUR ---
TONIA SESAY WELL CALL RECD FROM [facility]- INSURANCE AUTH STILL PENDING
[2018-11-25 11:00] VITALS: BP 123/77
[2018-11-25] MEDS ORDERED: LISI-613 PO (15:19)
[2018-11-25] MEDS ORDERED: METO25 PO (15:19)
--- NOTE | 2018-11-25 16:00 | NUR ---
SALINE LOCK REMOVED AND DRESSING TO LT. WRIST AREA CHANGED.
--- NOTE | 2018-11-25 16:10 | NUR ---
DISCHARGED USING TEACH BACK VERBALIZES UNDERSTANDING OF ALL INST. GIVEN. WILL FOLLOW UP WITH DR. MCMILLAN TOMORROW AND CONTINUE HEMODIALYSIS HAS BEEN SCHEDULED.
--- NOTE | 2018-11-25 17:46 | NUR ---
PT TO DIALYZE AT [facility] TOMORROW FINAL INFO FAXED TO CLINIC AND CLINIC INFO GIVEN TO PATIENT Addendum: 11/25/18 at 1748 by BARBARA RON RN CM Amended: Links added.
== END 2018-11-25 16:28 | disposition home or self-care (01) | DRG 853 ==
LOC: EDH 03:36 → EDHIP 05:42 → 2AH 14:37 → 3AH 11-17 14:17
PROVIDERS: ADMIT Internal Medicine; ATTEND Internal Medicine
PROC: 05HM33Z Insertion of Infusion Device into Right Internal Jugular Vein, Percutaneous Approach (ICD-10-PCS; 2018-11-15)
PROC: B5131ZA Fluoroscopy of Right Jugular Veins using Low Osmolar Contrast, Guidance (ICD-10-PCS; 2018-11-15)
PROC: 5A1D70Z Performance of Urinary Filtration, Intermittent, Less than 6 Hours Per Day (ICD-10-PCS; 2018-11-15)
PROC: 5A1D70Z Performance of Urinary Filtration, Intermittent, Less than 6 Hours Per Day (ICD-10-PCS; 2018-11-16)
PROC: 5A1D70Z Performance of Urinary Filtration, Intermittent, Less than 6 Hours Per Day (ICD-10-PCS; 2018-11-18)
PROC: 0B9G8ZX Drainage of Left Upper Lung Lobe, Via Natural or Artificial Opening Endoscopic, Diagnostic (ICD-10-PCS; 2018-11-18)
PROC: 5A1D70Z Performance of Urinary Filtration, Intermittent, Less than 6 Hours Per Day (ICD-10-PCS; 2018-11-20)
PROC: 031B0ZF Bypass Right Radial Artery to Lower Arm Vein, Open Approach (ICD-10-PCS; principal; 2018-11-20 07:30)
PROC: 0JH63XZ Insertion of Tunneled Vascular Access Device into Chest Subcutaneous Tissue and Fascia, Percutaneous Approach (ICD-10-PCS; 2018-11-21)
PROC: 02H633Z Insertion of Infusion Device into Right Atrium, Percutaneous Approach (ICD-10-PCS; 2018-11-21)
PROC: B2141ZZ Fluoroscopy of Right Heart using Low Osmolar Contrast (ICD-10-PCS; 2018-11-21)
PROC: 02PYX3Z Removal of Infusion Device from Great Vessel, External Approach (ICD-10-PCS; 2018-11-21)
PROC: 5A1D70Z Performance of Urinary Filtration, Intermittent, Less than 6 Hours Per Day (ICD-10-PCS; 2018-11-22)
DX: A41.9 Sepsis, unspecified organism (principal); J18.9 Pneumonia, unspecified organism; J96.01 Acute respiratory failure with hypoxia; N18.6 End stage renal disease; E43 Unspecified severe protein-calorie malnutrition; I50.33 Acute on chronic diastolic (congestive) heart failure; J18.0 Bronchopneumonia, unspecified organism; I13.2 Hypertensive heart and chronic kidney disease with heart failure and with stage 5 chronic kidney disease, or end stage renal disease; E87.2 Acidosis; I42.9 Cardiomyopathy, unspecified; N17.9 Acute kidney failure, unspecified; E11.22 Type 2 diabetes mellitus with diabetic chronic kidney disease; E87.70 Fluid overload, unspecified; E66.01 Morbid (severe) obesity due to excess calories; D69.6 Thrombocytopenia, unspecified; Y95 Nosocomial condition; D89.9 Disorder involving the immune mechanism, unspecified; E11.65 Type 2 diabetes mellitus with hyperglycemia; E78.2 Mixed hyperlipidemia; E83.59 Other disorders of calcium metabolism; E87.6 Hypokalemia; I48.0 Paroxysmal atrial fibrillation; Z68.32 Body mass index [BMI] 32.0-32.9, adult; Z78.9 Other specified health status; Z99.2 Dependence on renal dialysis; Z91.15 Patient's noncompliance with renal dialysis; Z90.81 Acquired absence of spleen; Z90.49 Acquired absence of other specified parts of digestive tract; Z87.01 Personal history of pneumonia (recurrent); Z83.3 Family history of diabetes mellitus
CPT/HCPCS: 36415; 36556; 36581; 36600; 71045; 71250; 76000; 77001; 80048; 80053; 80061; 80202; 80339; 82040; 82550; 82803; 82948; 83036; 83605; 83735; 83874; 83880; 84100; 84484; 85025; 85027; 85610; 85651; 85730; 86140; 86701; 86704; 86706; 87040; 87071; 87101; 87116; 87205; 87206; 87340; 87390; 87486; 87520; 87556; 87581; 87633; 87798; 87804; 88104; 88305; 88312; 89051; 90935; 93005; 93306; 93971; 94640; 94664; 94667; 94668; 99291; C1750; C1752; G0378; J0330; J0360; J1644; J1650; J1815; J1940; J2250; J2440; J2543; J2704; J3010; J3370; J3490; J7030; J7040; J7608